=== PATIENT | male | born 1990 | race Caucasian/White ===

== ENCOUNTER 2017-11-23 03:35 | Emergency (ER) | payer BC ==
[~2017-11-23] VITALS: Ht 183.5 cm; Wt 84.1 kg
[2017-11-23] MEDS ORDERED: PERTUSS(ACELL),DIPH,TET VAC/PF 0.5 ML VIAL IM ONE (04:00)
[2017-11-23 05:02] VITALS: BP 137/85
== END 2017-11-23 05:49 | disposition home or self-care (01) ==
LOC: EMS 03:38
DX: S00.531A Contusion of lip, initial encounter (principal); Y04.0XXA Assault by unarmed brawl or fight, initial encounter; Y93.89 Activity, other specified; Y92.89 Other specified places as the place of occurrence of the external cause; Y99.8 Other external cause status
CPT/HCPCS: 36415; 70450; 70486; 72125; 90471; 90715; 99285; G0480